=== PATIENT | male | born 1940 | race Caucasian/White ===

== ENCOUNTER 2017-09-21 15:01 | Inpatient (IN) | payer OTHER ==
[~2017-09-21] VITALS: Ht 182.9 cm; Wt 98.5 kg
[2017-09-21 16:05] LABS: Basophils # (auto) 0 uL; Eosinophils # (auto) 0 uL; Lymphocytes # (auto) 0.6 uL; Neutrophils # (auto) 6.1 uL; Nucleated Red Blood Cells % 0.1 %
[2017-09-21 16:07] LABS: Basophils % (auto) 0.5 % (0.0-2.0); Eosinophils % (auto) 0.1 % (0.0-7.0); Hematocrit 40.3 % (41.0-53.0); Lymphocytes % (auto) 7.9 % (10.0-50.0); Mean Corpuscular Hemoglobin 35.4 pg (28.0-32.0); Mean Corpuscular Hgb Conc. 34.7 g/dL (32.0-36.0); Mean Corpuscular Volume 102.2 fL (80.0-100.0); Monocytes # (auto) 0.9 uL; Monocytes % (auto) 11.2 % (0.0-12.0); Neutrophils % (auto) 80.3 % (37.0-80.0); Platelet Count (auto) 168 10^3/uL (140-450); Red Blood Cells 3.94 10^6/uL (4.5-5.90); Red Cell Distribution Width 14.5 % (11.8-14.3); White Blood Cell 7.6 10^3/uL (4.4-10.8)
[2017-09-21 16:11] LABS: Prothrombin Time 10.7 sec (9.27-12.13)
[2017-09-21 16:20] LABS: Albumin 2.8 g/dL (3.4-5.0); BUN/Creatinine Ratio 17.6; Bilirubin, Total 0.5 mg/dL (0.2-1.0); Calcium 8.2 mg/dL (8.5-10.1); Magnesium 2.7 mg/dL (1.6-2.6); Potassium 4.2 mmol/L (3.5-5.1); Total Protein 6.6 g/dL (6.4-8.2)
[2017-09-21] MEDS ORDERED: cloNIDine HCL 0.1 MG TAB ONE (18:17)
[2017-09-21] MEDS ORDERED: HYDROcodone-ACET 5/325MG TAB PO PRN (19:00)
[2017-09-21] MEDS ORDERED: ACETAMINOPHEN 500 MG TAB PO PRN (19:00)
[2017-09-21] MEDS ORDERED: MORPHINE SULF INJ 2 MG/ML SYRINGE 1ML IV PRN ×2 (19:00)
[2017-09-21] MEDS ORDERED: LORazepam 0.5 MG TAB PO PRN (19:00)
[2017-09-21] MEDS ORDERED: NITROGLYCERIN 0.4 MG SL TAB SL PRN (19:00)
[2017-09-21] MEDS ORDERED: LACTULOSE 20Gm/30ML SOLN PO PRN (19:00)
[2017-09-21] MEDS ORDERED: TEMAZEPAM 15 MG CAP PO PRN (19:00)
[2017-09-21] MEDS: ENOXAPARIN SOD 40 MG/0.4 ML SYRINGE SC SCH (19:15)
[2017-09-21] MEDS ORDERED: ENALAPRILAT 1.25 MG/ML-1ML VIAL IV ONE ×2 (19:30→20:30)
[2017-09-21] MEDS ORDERED: FUROSEMIDE 40 MG/4 ML VIAL IV ONE (19:30)
[2017-09-21] MEDS ORDERED: chlordiazePOXIDE HCL 25 MG CAP PO PRN (20:00)
[2017-09-21] MEDS ORDERED: THIAMINE 100mg/ml INJ (200mg/2ml VIAL) IV ONE (20:00)
[2017-09-21] MEDS ORDERED: CARVEDILOL 3.125 MG TAB PO ONE (20:30)
[2017-09-21] MEDS ORDERED: NITROGLYCERIN 0.2MG/HR TOPICAL PATCH TD ONE (20:30)
[2017-09-21] MEDS ORDERED: chlordiazePOXIDE HCL 5 MG CAP PO ONE (20:30)
[2017-09-21 22:15] VITALS: BP 153/96
[2017-09-21 22:25] VITALS: BP 153/96
[2017-09-21] MEDS: SODIUM CHLOR 0.9% PF (SALINE LOCK) 10ML VIAL/SYR IV SCH (23:01)
[2017-09-21] MEDS: CARVEDILOL 3.125 MG TAB PO SCH (23:02)
[2017-09-21] MEDS: ATORVASTATIN 20 MG TAB PO SCH (23:02)
[2017-09-21] MEDS ORDERED: TRAZ50TA2 PO (23:14)
[2017-09-22 01:45] LABS: Urine Bacteria FEW /hpf (None Seen); Urine Blood 2+ /uL (Negative); Urine Hyaline Cast FEW /lpf (0 - 2); Urine Specific Gravity 1.013 (1.001-1.035); Urine WBC 3 /hpf (0 - 3)
[2017-09-22 01:46] LABS: Alcohol, Urine < 3.0 mg/dL (0-5); Amphetamine Screen, Urine NEGATIVE (NEGATIVE); Barbiturate Scree,Urine NEGATIVE (NEGATIVE); Benzodiazephine Screen, Urine NEGATIVE (NEGATIVE); Cannabinoid Screen, Urine NEGATIVE (NEGATIVE); Cocaine Screen, Urine NEGATIVE (NEGATIVE); Opiate Scree,Urine NEGATIVE (NEGATIVE); Phencyclidine Screen, Urine NEGATIVE (NEGATIVE)
[2017-09-22 05:00] VITALS: BP 135/56
[2017-09-22] MEDS: SODIUM CHLOR 0.9% PF (SALINE LOCK) 10ML VIAL/SYR IV SCH ×3 (06:10→21:24)
[2017-09-22] MEDS: chlordiazePOXIDE HCL 5 MG CAP PO SCH ×3 (06:10→12:00)
[2017-09-22 06:22] LABS: Albumin 2.5 g/dL (3.4-5.0); BUN/Creatinine Ratio 18.7; Bilirubin, Total 0.4 mg/dL (0.2-1.0); Calcium 7.6 mg/dL (8.5-10.1); Potassium 3.4 mmol/L (3.5-5.1); Total Protein 5.8 g/dL (6.4-8.2)
[2017-09-22 07:55] VITALS: BP 118/73
[2017-09-22] MEDS ORDERED: ENALAPRIL MALEATE 2.5 MG TAB PO SCH (10:00)
[2017-09-22] MEDS: NITROGLYCERIN 0.2MG/HR TOPICAL PATCH TD SCH (10:55)
[2017-09-22] MEDS: FUROSEMIDE 40 MG/4 ML VIAL IV SCH (10:56)
[2017-09-22] MEDS: ENOXAPARIN SOD 40 MG/0.4 ML SYRINGE SC SCH (10:57)
[2017-09-22] MEDS: THIAMINE 100mg/ml INJ (200mg/2ml VIAL) IV SCH (10:57)
[2017-09-22] MEDS: ASPirin 81 mg TAB PO SCH (10:58)
[2017-09-22] MEDS: POTASSIUM CHL 20 Meq TABLET PO SCH (10:58)
[2017-09-22] MEDS: CARVEDILOL 3.125 MG TAB PO SCH ×2 (10:59→21:25)
[2017-09-22] MEDS: PANTOPRAZOLE 40 MG TAB PO SCH (10:59)
[2017-09-22 13:00] VITALS: BP 142/100
[2017-09-22] MEDS: FOLIC ACID 1 MG TAB PO SCH (15:20)
[2017-09-22 16:16] VITALS: BP 159/98
[2017-09-22] MEDS: ATORVASTATIN 20 MG TAB PO SCH (21:25)
[2017-09-22] MEDS: PROMETHAZINE HCL 25 MG/ML 1ML IV PRN (21:26)
[2017-09-22 22:00] VITALS: BP 159/121
[2017-09-22 23:30] VITALS: BP 155/95
[2017-09-23 05:30] VITALS: BP 158/98
[2017-09-23] MEDS: SODIUM CHLOR 0.9% PF (SALINE LOCK) 10ML VIAL/SYR IV SCH ×3 (05:45→21:45)
[2017-09-23 05:46] LABS: Basophils # (auto) 0 uL; Basophils % (auto) 0.5 % (0.0-2.0); Hematocrit 35.5 % (41.0-53.0); Hemoglobin 12.3 g/dL (13.5-17.5); Mean Corpuscular Hemoglobin 35.5 pg (28.0-32.0); Platelet Count (auto) 131 10^3/uL (140-450)
[2017-09-23 05:48] LABS: Eosinophils # (auto) 0.1 uL; Eosinophils % (auto) 1.1 % (0.0-7.0); Lymphocytes % (auto) 17.3 % (10.0-50.0); Mean Corpuscular Hgb Conc. 34.7 g/dL (32.0-36.0); Mean Corpuscular Volume 102.4 fL (80.0-100.0); Monocytes % (auto) 16.7 % (0.0-12.0); Neutrophils # (auto) 3.7 uL; Neutrophils % (auto) 64.4 % (37.0-80.0); Nucleated Red Blood Cells % 0.1 %; Red Blood Cells 3.47 10^6/uL (4.5-5.90); Red Cell Distribution Width 13.9 % (11.8-14.3); White Blood Cell 5.7 10^3/uL (4.4-10.8)
[2017-09-23 06:02] LABS: BUN/Creatinine Ratio 18.1; Potassium 3.2 mmol/L (3.5-5.1)
[2017-09-23 06:06] LABS: Calcium 7.5 mg/dL (8.5-10.1); Magnesium 2.2 mg/dL (1.6-2.6)
[2017-09-23 08:46] VITALS: BP 169/107
[2017-09-23] MEDS: FOLIC ACID 1 MG TAB PO SCH (08:56)
[2017-09-23] MEDS: FUROSEMIDE 40 MG/4 ML VIAL IV SCH (08:56)
[2017-09-23] MEDS: POTASSIUM CHL 20 Meq TABLET PO SCH (08:56)
[2017-09-23] MEDS: CARVEDILOL 3.125 MG TAB PO SCH ×2 (08:57→21:45)
[2017-09-23] MEDS: PANTOPRAZOLE 40 MG TAB PO SCH (08:57)
[2017-09-23] MEDS: ASPirin 81 mg TAB PO SCH (08:58)
[2017-09-23] MEDS: THIAMINE 100mg/ml INJ (200mg/2ml VIAL) IV SCH (08:58)
[2017-09-23] MEDS: ENOXAPARIN SOD 40 MG/0.4 ML SYRINGE SC SCH (08:58)
[2017-09-23] MEDS: NITROGLYCERIN 0.2MG/HR TOPICAL PATCH TD SCH (10:00)
[2017-09-23 12:43] VITALS: BP 109/68
[2017-09-23] MEDS: PROMETHAZINE HCL 25 MG/ML 1ML IV PRN (15:49)
[2017-09-23] MEDS ORDERED: ALPRAZolam 0.25 MG TAB PO PRN (16:45)
[2017-09-23] MEDS ORDERED: hydrALAZINE HCL 10 MG TAB PO PRN (16:45)
[2017-09-23 17:04] VITALS: BP 161/98
[2017-09-23] MEDS: ATORVASTATIN 20 MG TAB PO SCH (21:44)
[2017-09-23 23:00] VITALS: BP 155/98
[2017-09-24 05:00] VITALS: BP 134/87
[2017-09-24] MEDS: SODIUM CHLOR 0.9% PF (SALINE LOCK) 10ML VIAL/SYR IV SCH ×2 (05:45→14:00)
[2017-09-24 06:25] LABS: Basophils # (auto) 0 uL; Eosinophils # (auto) 0.1 uL; Hemoglobin 12.3 g/dL (13.5-17.5); Lymphocytes # (auto) 0.7 uL; Neutrophils # (auto) 3.5 uL; Platelet Count (auto) 140 10^3/uL (140-450)
[2017-09-24 06:27] LABS: Basophils % (auto) 0.4 % (0.0-2.0); Eosinophils % (auto) 1.2 % (0.0-7.0); Hematocrit 36.3 % (41.0-53.0); Lymphocytes % (auto) 13.2 % (10.0-50.0); Mean Corpuscular Hemoglobin 34.9 pg (28.0-32.0); Mean Corpuscular Hgb Conc. 33.9 g/dL (32.0-36.0); Monocytes # (auto) 0.8 uL; Monocytes % (auto) 15.9 % (0.0-12.0); Neutrophils % (auto) 69.3 % (37.0-80.0); Red Blood Cells 3.53 10^6/uL (4.5-5.90); Red Cell Distribution Width 14.1 % (11.8-14.3); White Blood Cell 5.1 10^3/uL (4.4-10.8)
[2017-09-24 06:37] LABS: BUN/Creatinine Ratio 19.3; Calcium 7.5 mg/dL (8.5-10.1); Magnesium 2.5 mg/dL (1.6-2.6); Potassium 3.4 mmol/L (3.5-5.1)
[2017-09-24 08:00] VITALS: BP 143/79
[2017-09-24] MEDS: FUROSEMIDE 40 MG/4 ML VIAL IV SCH (10:00)
[2017-09-24] MEDS: THIAMINE 100mg/ml INJ (200mg/2ml VIAL) IV SCH (10:00)
[2017-09-24] MEDS: POTASSIUM CHL 20 Meq TABLET PO SCH (10:00)
[2017-09-24] MEDS: ASPirin 81 mg TAB PO SCH (10:00)
[2017-09-24] MEDS: FOLIC ACID 1 MG TAB PO SCH (10:00)
[2017-09-24] MEDS: CARVEDILOL 3.125 MG TAB PO SCH (10:00)
[2017-09-24] MEDS: PANTOPRAZOLE 40 MG TAB PO SCH (10:00)
[2017-09-24] MEDS: ENOXAPARIN SOD 40 MG/0.4 ML SYRINGE SC SCH (10:00)
[2017-09-24] MEDS: NITROGLYCERIN 0.2MG/HR TOPICAL PATCH TD SCH (10:00)
[2017-09-24 11:37] VITALS: BP 143/79
[2017-09-24 12:30] VITALS: BP 142/92
[2017-09-24 16:39] VITALS: BP 168/104
== END 2017-09-24 16:50 | disposition home health service (06) | DRG 280 ==
LOC: ER 15:01 → EDUNIT# 15:01 → EDBD 15:01 → TELE 15:02 → TELE-EAST 22:16
PROVIDERS: ADMIT Internal Medicine; ATTEND Internal Medicine
DX: I13.0 Hypertensive heart and chronic kidney disease with heart failure and stage 1 through stage 4 chronic kidney disease, or unspecified chronic kidney disease (principal); I21.4 Non-ST elevation (NSTEMI) myocardial infarction; I50.43 Acute on chronic combined systolic (congestive) and diastolic (congestive) heart failure; N17.9 Acute kidney failure, unspecified; I42.0 Dilated cardiomyopathy; N18.3 Chronic kidney disease, stage 3 (moderate); I25.5 Ischemic cardiomyopathy; F10.20 Alcohol dependence, uncomplicated; N28.1 Cyst of kidney, acquired; Z72.0 Tobacco use; Z82.49 Family history of ischemic heart disease and other diseases of the circulatory system; Z91.19 Patient's noncompliance with other medical treatment and regimen
CPT/HCPCS: 36415; 51702; 71045; 74176; 76775; 80048; 80053; 80061; 80307; 81001; 82150; 82550; 83690; 83735; 83880; 84443; 84484; 85025; 85379; 85610; 85652; 85730; 86141; 93005; 93306; 94761; 96372; 96374; 96375

== ENCOUNTER 2017-11-02 20:26 | Inpatient (IN) | payer OTHER ==
[~2017-11-02] VITALS: Ht 182.9 cm; Wt 99.3 kg
[~2017-11-02 20:26] MED LIST: TRAZ50TA2 PO
[2017-11-02] MEDS ORDERED: FUROSEMIDE 40 MG/4 ML VIAL IV ONE (20:45)
[2017-11-02 21:15] LABS: Basophils # (auto) 0 uL; Eosinophils # (auto) 0 uL; Lymphocytes # (auto) 0.6 uL; Lymphocytes % (auto) 9.7 % (10.0-50.0); Mean Corpuscular Volume 103.1 fL (80.0-100.0); Monocytes # (auto) 0.5 uL; White Blood Cell 6.5 10^3/uL (4.4-10.8)
[2017-11-02 21:17] LABS: Basophils % (auto) 0.4 % (0.0-2.0); Eosinophils % (auto) 0.7 % (0.0-7.0); Hematocrit 29.1 % (41.0-53.0); Hemoglobin 9.9 g/dL (13.5-17.5); Mean Corpuscular Hemoglobin 35.3 pg (28.0-32.0); Mean Corpuscular Hgb Conc. 34.2 g/dL (32.0-36.0); Monocytes % (auto) 7.6 % (0.0-12.0); Neutrophils # (auto) 5.3 uL; Neutrophils % (auto) 81.6 % (37.0-80.0); Platelet Count (auto) 173 10^3/uL (140-450); Red Blood Cells 2.82 10^6/uL (4.5-5.90)
[2017-11-02 21:32] LABS: INR 0.97 (0.9-1.15); Partial Thromboplastin Time 29.5 sec (23.78-33.04); Prothrombin Time 10.4 sec (9.27-12.13)
[2017-11-02 21:45] LABS: Albumin 2.4 g/dL (3.4-5.0); BUN/Creatinine Ratio 11.6; Bilirubin, Total 0.3 mg/dL (0.2-1.0); Calcium 7.5 mg/dL (8.5-10.1); Potassium 3.7 mmol/L (3.5-5.1); Total Protein 6.3 g/dL (6.4-8.2)
[2017-11-02] MEDS ORDERED: ASPirin 325 MG TAB PO ONE (22:45)
[2017-11-02] MEDS ORDERED: LABETALOL HCL 5 MG/ML ML 20ML VIAL IV ONE (22:45)
[2017-11-02] MEDS ORDERED: MORPHINE SULFATE 4 MG/ML SYR/VIAL IV ONE (22:45)
[2017-11-02] MEDS ORDERED: NITROGLYCERIN 0.4 MG SL TAB SL ONE (22:45)
[2017-11-02] MEDS ORDERED: MORPHINE SULFATE 4 MG/ML SYR/VIAL IV PRN (23:30)
[2017-11-02] MEDS ORDERED: ONDANSETRON HCL 4 MG/2 ML VIAL IV PRN (23:30)
[2017-11-02] MEDS ORDERED: HYDROcodone-ACET 5/325MG TAB PO PRN (23:30)
[2017-11-02] MEDS ORDERED: ACETAMINOPHEN 325 MG TAB PO PRN (23:30)
[2017-11-02] MEDS ORDERED: NITROGLYCERIN 0.4 MG SL TAB SL PRN (23:30)
[2017-11-02] MEDS ORDERED: TEMAZEPAM 15 MG CAP PO PRN (23:30)
[2017-11-02] MEDS ORDERED: DOCUSATE SOD 100 MG CAP PO PRN (23:30)
[2017-11-03] VITALS (7 sets, daily range): BP systolic 98–161; BP diastolic 56–98
[2017-11-03] MEDS ORDERED: cloNIDine HCL 0.1 MG TAB PO ONE (00:30)
[2017-11-03 01:45] LABS: Urine Amorphous Crystal FEW /hpf (None Seen); Urine Bacteria FEW /hpf (None Seen); Urine Blood Negative /uL (Negative); Urine Mucus FEW (None Seen); Urine Specific Gravity 1.006 (1.001-1.035); Urine WBC 4 /hpf (0 - 3)
[2017-11-03] MEDS ORDERED: FUROSEMIDE 20 MG/2 ML VIAL IV SCH (06:00)
[2017-11-03] MEDS: PANTOPRAZOLE 40 MG TAB PO SCH (06:19)
[2017-11-03 06:52] LABS: Basophils # (auto) 0 uL; Eosinophils # (auto) 0.1 uL; Hemoglobin 9.1 g/dL (13.5-17.5); Lymphocytes # (auto) 0.8 uL; Monocytes # (auto) 0.5 uL; Neutrophils # (auto) 3.1 uL; Neutrophils % (auto) 67.8 % (37.0-80.0); Red Cell Distribution Width 14.5 % (11.8-14.3); White Blood Cell 4.6 10^3/uL (4.4-10.8)
[2017-11-03 06:54] LABS: Basophils % (auto) 0.5 % (0.0-2.0); Eosinophils % (auto) 1.7 % (0.0-7.0); Hematocrit 26.8 % (41.0-53.0); Lymphocytes % (auto) 18.6 % (10.0-50.0); Mean Corpuscular Hemoglobin 34.9 pg (28.0-32.0); Mean Corpuscular Hgb Conc. 33.8 g/dL (32.0-36.0); Mean Corpuscular Volume 103.2 fL (80.0-100.0); Monocytes % (auto) 11.4 % (0.0-12.0); Nucleated Red Blood Cells % 0.1 %; Platelet Count (auto) 155 10^3/uL (140-450); Red Blood Cells 2.59 10^6/uL (4.5-5.90)
[2017-11-03 07:20] LABS: Albumin 2.3 g/dL (3.4-5.0); BUN/Creatinine Ratio 11.5; Bilirubin, Total 0.3 mg/dL (0.2-1.0); Calcium 7.3 mg/dL (8.5-10.1); Potassium 3.9 mmol/L (3.5-5.1); Total Protein 5.8 g/dL (6.4-8.2)
[2017-11-03] MEDS: CARVEDILOL 3.125 MG TAB PO SCH ×2 (08:00→18:00)
[2017-11-03] MEDS: ENOXAPARIN SOD 40 MG/0.4 ML SYRINGE SC SCH (08:45)
[2017-11-03] MEDS: ASPirin 81 mg TAB PO SCH (08:45)
[2017-11-03] MEDS ORDERED: FUROSEMIDE 40 MG/4 ML VIAL IV ONE (15:00)
[2017-11-03] MEDS: FUROSEMIDE 20 MG/2 ML VIAL IV SCH (18:00)
[2017-11-03] MEDS: IPRATROPIUM BROM 0.5 MG/2.5ML INH SOL NEB SCH (18:38)
[2017-11-03] MEDS: ALBUTEROL SULF 2.5 MG/0.5ML(0.5%) NEB SOLN NEB SCH (18:39)
[2017-11-03] MEDS ORDERED: hydrALAZINE HCL 20 MG/ML VL IV PRN (21:30)
[2017-11-03] MEDS ORDERED: ATORVASTATIN 20 MG TAB PO SCH (22:00)
[2017-11-03] MEDS ORDERED: traZODone HCL 50 MG TAB PO SCH (22:00)
[2017-11-04] VITALS: BP 151/86
[2017-11-04] MEDS: ALBUTEROL SULF 2.5 MG/0.5ML(0.5%) NEB SOLN NEB SCH ×4 (00:28→11:44)
[2017-11-04] MEDS: IPRATROPIUM BROM 0.5 MG/2.5ML INH SOL NEB SCH ×4 (00:28→11:44)
[2017-11-04 05:14] LABS: Basophils # (auto) 0 uL; Eosinophils # (auto) 0.1 uL; Lymphocytes # (auto) 0.7 uL; Mean Corpuscular Hemoglobin 34.8 pg (28.0-32.0); Monocytes # (auto) 0.6 uL; Neutrophils # (auto) 3.5 uL
[2017-11-04 05:16] LABS: Basophils % (auto) 0.5 % (0.0-2.0); Eosinophils % (auto) 2.3 % (0.0-7.0); Hematocrit 28.6 % (41.0-53.0); Hemoglobin 9.7 g/dL (13.5-17.5); Lymphocytes % (auto) 14.5 % (10.0-50.0); Mean Corpuscular Volume 102.5 fL (80.0-100.0); Monocytes % (auto) 11.3 % (0.0-12.0); Neutrophils % (auto) 71.4 % (37.0-80.0); Platelet Count (auto) 165 10^3/uL (140-450); Red Blood Cells 2.79 10^6/uL (4.5-5.90); Red Cell Distribution Width 14.4 % (11.8-14.3)
[2017-11-04 05:23] LABS: INR 0.96 (0.9-1.15); Partial Thromboplastin Time 29.2 sec (23.78-33.04); Prothrombin Time 10.3 sec (9.27-12.13)
[2017-11-04 05:27] VITALS: BP 146/88
[2017-11-04 05:41] LABS: BUN/Creatinine Ratio 12.3; Magnesium 2.1 mg/dL (1.6-2.6); Potassium 3.3 mmol/L (3.5-5.1)
[2017-11-04] MEDS: PANTOPRAZOLE 40 MG TAB PO SCH (06:20)
[2017-11-04] MEDS: FUROSEMIDE 20 MG/2 ML VIAL IV SCH (06:21)
[2017-11-04 09:00] VITALS: BP 136/75
[2017-11-04] MEDS: ENOXAPARIN SOD 40 MG/0.4 ML SYRINGE SC SCH (09:14)
[2017-11-04] MEDS: ASPirin 81 mg TAB PO SCH (09:15)
[2017-11-04] MEDS: CARVEDILOL 3.125 MG TAB PO SCH (09:15)
[2017-11-04 13:00] VITALS: BP 147/90
[2017-11-04] MEDS ORDERED: POTASSIUM CHL 20 Meq TABLET PO ONE (13:30)
[2017-11-04] MEDS ORDERED: TRAZ50TA2 PO (13:33)
[2017-11-04 15:27] VITALS: BP 147/90
== END 2017-11-04 16:20 | disposition home health service (06) | DRG 291 ==
LOC: ER 20:26 → EDBD 20:26 → TELE 20:27 → TELE-WESTW 23:58
PROVIDERS: ADMIT Nurse Practitioner; ATTEND Internal Medicine
DX: I13.0 Hypertensive heart and chronic kidney disease with heart failure and stage 1 through stage 4 chronic kidney disease, or unspecified chronic kidney disease (principal); J96.01 Acute respiratory failure with hypoxia; I50.43 Acute on chronic combined systolic (congestive) and diastolic (congestive) heart failure; N17.9 Acute kidney failure, unspecified; I16.1 Hypertensive emergency; E78.5 Hyperlipidemia, unspecified; I50.82 Biventricular heart failure; F10.10 Alcohol abuse, uncomplicated; F51.04 Psychophysiologic insomnia; I08.3 Combined rheumatic disorders of mitral, aortic and tricuspid valves; I42.9 Cardiomyopathy, unspecified; N18.3 Chronic kidney disease, stage 3 (moderate); Z82.49 Family history of ischemic heart disease and other diseases of the circulatory system; Z91.14 Patient's other noncompliance with medication regimen; Z91.19 Patient's noncompliance with other medical treatment and regimen; Z79.899 Other long term (current) drug therapy
CPT/HCPCS: 36415; 71045; 80048; 80053; 81001; 83735; 83880; 84443; 84484; 85025; 85610; 85730; 93005; 94640; 96374; 96375

== ENCOUNTER 2017-12-10 23:48 | Inpatient (IN) | payer OTHER ==
[~2017-12-10] VITALS: Ht 157.5 cm; Wt 100.2 kg
[2017-12-11] MEDS ORDERED: IPRATROPIUM BROM 0.5 MG/2.5ML INH SOL NEB ONE
[2017-12-11] MEDS ORDERED: ALBUTEROL SULF 2.5 MG/0.5ML(0.5%) NEB SOLN NEB ONE
[2017-12-11 00:49] LABS: Basophils # (auto) 0 uL; Basophils % (auto) 0.4 % (0.0-2.0); Eosinophils # (auto) 0 uL; Eosinophils % (auto) 0.2 % (0.0-7.0); Hematocrit 33.3 % (41.0-53.0); Lymphocytes # (auto) 0.6 uL; Lymphocytes % (auto) 6.3 % (10.0-50.0); Mean Corpuscular Hemoglobin 33.1 pg (28.0-32.0); Mean Corpuscular Hgb Conc. 33.1 g/dL (32.0-36.0); Mean Corpuscular Volume 99.9 fL (80.0-100.0); Monocytes % (auto) 11.2 % (0.0-12.0); Neutrophils # (auto) 7.5 uL; Neutrophils % (auto) 81.9 % (37.0-80.0); Nucleated Red Blood Cells % 0.1 %; Platelet Count (auto) 199 10^3/uL (140-450); Red Blood Cells 3.33 10^6/uL (4.5-5.90); Red Cell Distribution Width 14.2 % (11.8-14.3); White Blood Cell 9.2 10^3/uL (4.4-10.8)
[2017-12-11 01:03] LABS: INR 0.96 (0.9-1.15); Partial Thromboplastin Time 28.1 sec (23.78-33.04); Prothrombin Time 10.3 sec (9.27-12.13)
[2017-12-11 01:08] LABS: Albumin 2.9 g/dL (3.4-5.0); Calcium 7.6 mg/dL (8.5-10.1); Magnesium 2.1 mg/dL (1.6-2.6); Potassium 3.7 mmol/L (3.5-5.1)
[2017-12-11 01:10] LABS: BUN/Creatinine Ratio 8.9
[2017-12-11 01:15] LABS: Bilirubin, Total 0.4 mg/dL (0.2-1.0); Total Protein 6.9 g/dL (6.4-8.2)
[2017-12-11] MEDS ORDERED: FUROSEMIDE 40 MG/4 ML VIAL IV ONE (03:15)
[2017-12-11] MEDS ORDERED: ASPirin-EC 325mg tab PO ONE (03:15)
[2017-12-11] MEDS ORDERED: methylPREDNISolone SOD SUCC 125 MG/2 ML VL IV ONE (03:15)
[2017-12-11] MEDS ORDERED: cefTRIAXone 1GM/50ML D5W 50 ML IV ONE (03:15)
[2017-12-11] MEDS ORDERED: ONDANSETRON HCL 4 MG/2 ML VIAL IV ONE (05:30)
[2017-12-11] MEDS ORDERED: ACETAMINOPHEN 500 MG TAB PO PRN (05:30)
[2017-12-11] MEDS ORDERED: HYDROcodone-ACET 5/325MG TAB PO PRN (05:30)
[2017-12-11] MEDS: methylPREDNISolone SOD SUCC 40 MG/ML VL IV SCH ×3 (06:21→22:11)
[2017-12-11] MEDS: IPRATROPIUM BROM 0.5 MG/2.5ML INH SOL NEB SCH ×5 (06:28→22:30)
[2017-12-11] MEDS: ALBUTEROL SULF 2.5 MG/0.5ML(0.5%) NEB SOLN NEB SCH ×5 (06:28→22:30)
[2017-12-11] MEDS: ASPirin-EC 81 mg tab PO SCH (07:27)
[2017-12-11 08:03] VITALS: BP 160/76
[2017-12-11] MEDS: FUROSEMIDE 40 MG/4 ML VIAL IV SCH (09:38)
[2017-12-11] MEDS: CARVEDILOL 3.125 MG TAB PO SCH ×2 (09:39→22:12)
[2017-12-11 12:47] VITALS: BP 136/74
[2017-12-11 14:20] VITALS: BP 136/74
[2017-12-11 17:00] VITALS: BP_SYST 128; BP_SYST 133; BP_DIAS 72; BP_DIAS 83
[2017-12-11] MEDS ORDERED: POLYETHYLENE GLYCOL 17 GM PWDR PO PRN (18:15)
[2017-12-11] MEDS: DOCUSATE SOD 100 MG CAP PO SCH ×2 (18:46→22:12)
[2017-12-11 20:00] VITALS: BP 154/86
[2017-12-11 22:00] VITALS: BP 147/69
[2017-12-11] MEDS ORDERED: traZODone HCL 50 MG TAB PO SCH (22:00)
[2017-12-11] MEDS ORDERED: ATORVASTATIN 20 MG TAB PO SCH (22:00)
[2017-12-12] MEDS: ALBUTEROL SULF 2.5 MG/0.5ML(0.5%) NEB SOLN NEB SCH ×4 (02:09→14:12)
[2017-12-12] MEDS: IPRATROPIUM BROM 0.5 MG/2.5ML INH SOL NEB SCH ×4 (02:09→14:12)
[2017-12-12 05:15] VITALS: BP 142/99
[2017-12-12 05:50] LABS: Urine Bacteria FEW /hpf (None Seen); Urine Blood 1+ /uL (Negative); Urine Mucus FEW (None Seen); Urine Specific Gravity 1.009 (1.001-1.035); Urine WBC 8 /hpf (0 - 3)
[2017-12-12] MEDS: DOCUSATE SOD 100 MG CAP PO SCH ×2 (05:54→13:51)
[2017-12-12 06:31] LABS: Hematocrit 29.9 % (41.0-53.0); Hemoglobin 10.1 g/dL (13.5-17.5); Mean Corpuscular Hemoglobin 33.4 pg (28.0-32.0); Mean Corpuscular Hgb Conc. 33.8 g/dL (32.0-36.0); Platelet Count (auto) 177 10^3/uL (140-450); Red Blood Cells 3.02 10^6/uL (4.5-5.90); Red Cell Distribution Width 14.3 % (11.8-14.3); White Blood Cell 9.5 10^3/uL (4.4-10.8)
[2017-12-12 06:32] LABS: Basophils % (manual) 0 (0.0-2.0); Blast Cells 0; Eosinophils % (manual) 0 (0-7); Metamyelocytes % 0; Myelocytes % 0; Promyelocytes % 0; Reactive Lymphocytes 0
[2017-12-12 06:43] LABS: Band Neutrophils % (manual) 2; Lymphocytes % (manual) 5 (10.0-50.0); Monocytes % (manual) 3 (0-12)
[2017-12-12 06:57] LABS: Potassium 4.1 mmol/L (3.5-5.1)
[2017-12-12 07:02] LABS: BUN/Creatinine Ratio 17.8; Calcium 7.8 mg/dL (8.5-10.1); Magnesium 2.4 mg/dL (1.6-2.6)
[2017-12-12 08:00] VITALS: BP 133/72
[2017-12-12] MEDS: ASPirin-EC 81 mg tab PO SCH (09:21)
[2017-12-12] MEDS: methylPREDNISolone SOD SUCC 40 MG/ML VL IV SCH (09:22)
[2017-12-12] MEDS: CARVEDILOL 3.125 MG TAB PO SCH (09:22)
[2017-12-12] MEDS: FUROSEMIDE 40 MG/4 ML VIAL IV SCH (09:23)
[2017-12-12 12:00] VITALS: BP 146/97
[2017-12-12] MEDS ORDERED: FURO40TA PO (12:33)
[2017-12-12] MEDS ORDERED: CAR3125T PO (12:33)
[2017-12-12] MEDS ORDERED: ASP81EC PO (12:33)
[2017-12-12] MEDS ORDERED: DOCU100C8 PO (12:33)
[2017-12-12] MEDS ORDERED: PRED-559 PO (12:33)
[2017-12-12 14:28] VITALS: BP 146/97
== END 2017-12-12 18:08 | disposition home health service (06) | DRG 291 ==
LOC: EDUNIT# 23:48 → EDBD 23:48 → ER 23:53 → TELE 23:54 → TELE-WESTW 12-11 11:33
PROVIDERS: ADMIT Nurse Practitioner Family; ATTEND Internal Medicine
DX: I13.0 Hypertensive heart and chronic kidney disease with heart failure and stage 1 through stage 4 chronic kidney disease, or unspecified chronic kidney disease (principal); I50.23 Acute on chronic systolic (congestive) heart failure; J96.01 Acute respiratory failure with hypoxia; J44.1 Chronic obstructive pulmonary disease with (acute) exacerbation; I25.5 Ischemic cardiomyopathy; E78.5 Hyperlipidemia, unspecified; J84.10 Pulmonary fibrosis, unspecified; K59.00 Constipation, unspecified; N18.3 Chronic kidney disease, stage 3 (moderate); Z82.49 Family history of ischemic heart disease and other diseases of the circulatory system; Z87.891 Personal history of nicotine dependence; Z91.14 Patient's other noncompliance with medication regimen
CPT/HCPCS: 36415; 71045; 80048; 80053; 81001; 83735; 83880; 84484; 85007; 85025; 85027; 85610; 85730; 93005; 94640; 94761; 96365; 96375; 99291; G0378; J0696; J2405

== ENCOUNTER 2018-04-01 07:24 | Inpatient (IN) | payer OTHER | END 2018-04-04 11:06 | disposition home or self-care (01) | LOC: ER 07:24 → TELE 13:22 → TELE-WESTW 21:59 | PROC: 0DBL8ZX Excision of Transverse Colon, Via Natural or Artificial Opening Endoscopic, Diagnostic (ICD-10-PCS; principal; 2018-04-03 09:08) | DX: I13.0 Hypertensive heart and chronic kidney disease with heart failure and stage 1 through stage 4 chronic kidney disease, or unspecified chronic kidney disease (principal); I21.A1 Myocardial infarction type 2; J96.01 Acute respiratory failure with hypoxia; E43 Unspecified severe protein-calorie malnutrition; I50.23 Acute on chronic systolic (congestive) heart failure; K57.30 Diverticulosis of large intestine without perforation or abscess without bleeding; I42.9 Cardiomyopathy, unspecified; N18.3 Chronic kidney disease, stage 3 (moderate); D63.1 Anemia in chronic kidney disease; E78.5 Hyperlipidemia, unspecified; K64.8 Other hemorrhoids ==

== ENCOUNTER 2018-04-09 05:13 | Inpatient (IN) | payer OTHER | END 2018-04-10 18:40 | disposition hospice, home (50) | LOC: ER 05:13 → TELE 07:56 → TELE-WESTW 12:01 | DX: N17.9 Acute kidney failure, unspecified (principal); I50.43 Acute on chronic combined systolic (congestive) and diastolic (congestive) heart failure; I13.0 Hypertensive heart and chronic kidney disease with heart failure and stage 1 through stage 4 chronic kidney disease, or unspecified chronic kidney disease ==

== ENCOUNTER 2018-04-24 15:53 | Inpatient (IN) | payer OTHER ==
[~2018-04-24] VITALS: Ht 182.9 cm; Wt 100.0 kg
[~2018-04-24 15:53] MED LIST changes: +ALBUAER3 IN; +APIX2.5T OR; +ATOR40TA52; +CARV6.2551 PO; +DOCU100C8 PO; +FURO40TA PO; +PANT40T PO
[2018-04-24 17:01] LABS: Hemoglobin 8.6 g/dL (13.5-17.5); Monocytes # (auto) 0.8 uL; White Blood Cell 10.4 10^3/uL (4.4-10.8)
[2018-04-24 17:02] LABS: Basophils # (auto) 0.1 uL; Basophils % (auto) 1.4 % (0.0-2.0); Eosinophils # (auto) 0 uL; Eosinophils % (auto) 0.3 % (0.0-7.0); Hematocrit 26.9 % (41.0-53.0); Lymphocytes # (auto) 0.7 uL; Lymphocytes % (auto) 6.6 % (10.0-50.0); Mean Corpuscular Hgb Conc. 32.2 g/dL (32.0-36.0); Mean Corpuscular Volume 83.9 fL (80.0-100.0); Monocytes % (auto) 7.8 % (0.0-12.0); Neutrophils # (auto) 8.7 uL; Neutrophils % (auto) 83.9 % (37.0-80.0); Nucleated Red Blood Cells % 0.2 %; Platelet Count (auto) 366 10^3/uL (140-450); Red Cell Distribution Width 18.1 % (11.8-14.3)
[2018-04-24 17:06] LABS: Albumin 2.5 g/dL (3.4-5.0); BUN/Creatinine Ratio 24.9; Calcium 7.9 mg/dL (8.5-10.1); Magnesium 2.6 mg/dL (1.6-2.6); Potassium 3.8 mmol/L (3.5-5.1)
[2018-04-24 17:11] LABS: Bilirubin, Total 0.4 mg/dL (0.2-1.0); Total Protein 7.2 g/dL (6.4-8.2)
[2018-04-24 17:22] LABS: INR 1.08 (0.9-1.15); Partial Thromboplastin Time 32.4 sec (23.78-33.04); Prothrombin Time 11.5 sec (9.27-12.13)
[2018-04-24 20:46] LABS: Urine Bacteria NONE SEEN /hpf (None Seen); Urine Blood Negative /uL (Negative); Urine WBC 1 /hpf (0 - 3)
[2018-04-24] MEDS ORDERED: cefTRIAXone 1GM/50ML D5W 50 ML IV ONE (21:00)
[2018-04-24] MEDS ORDERED: MORPHINE SULF INJ 2 MG/ML SYRINGE 1ML IV PRN (21:15)
[2018-04-24] MEDS ORDERED: FUROSEMIDE 40 MG/4 ML VIAL IV ONE (21:15)
[2018-04-24] MEDS ORDERED: HYDROcodone-ACET 5/325MG TAB PO PRN (21:15)
[2018-04-24] MEDS ORDERED: ONDANSETRON HCL 4 MG/2 ML VIAL IV PRN (21:15)
[2018-04-24] MEDS ORDERED: AZITHROMYCIN 500MG/ 250ML 250 ML IV ONE (21:15)
[2018-04-24] MEDS ORDERED: cloNIDine HCL 0.1 MG TAB PO PRN (21:15)
[2018-04-24] MEDS ORDERED: NITROGLYCERIN 0.4 MG SL TAB SL PRN (21:15)
[2018-04-24] MEDS ORDERED: ALBUTEROL SULF 2.5 MG/0.5ML(0.5%) NEB SOLN NEB PRN (21:15)
[2018-04-24] MEDS ORDERED: ACETAMINOPHEN 325 MG TAB PO PRN (21:15)
[2018-04-24] MEDS: APIXABAN 2.5 MG TAB PO SCH (22:55)
[2018-04-24] MEDS: ATORVASTATIN 20 MG TAB PO SCH (22:55)
[2018-04-24] MEDS: CARVEDILOL 3.125 MG TAB PO SCH (22:55)
[2018-04-25 02:34] VITALS: BP 120/65
[2018-04-25] MEDS: FUROSEMIDE 20 MG/2 ML VIAL IV SCH ×2 (06:24→18:02)
[2018-04-25 07:11] LABS: Basophils # (auto) 0 uL; Lymphocytes # (auto) 0.5 uL; Nucleated Red Blood Cells % 0.1 %; White Blood Cell 8.8 10^3/uL (4.4-10.8)
[2018-04-25 07:16] LABS: Eosinophils # (auto) 0 uL; Eosinophils % (auto) 0.3 % (0.0-7.0); Hematocrit 25.2 % (41.0-53.0); Lymphocytes % (auto) 5.2 % (10.0-50.0); Mean Corpuscular Hemoglobin 26.6 pg (28.0-32.0); Mean Corpuscular Hgb Conc. 31.8 g/dL (32.0-36.0); Mean Corpuscular Volume 83.8 fL (80.0-100.0); Monocytes % (auto) 11.9 % (0.0-12.0); Neutrophils # (auto) 7.2 uL; Neutrophils % (auto) 82.6 % (37.0-80.0); Platelet Count (auto) 330 10^3/uL (140-450); Red Blood Cells 3.01 10^6/uL (4.5-5.90); Red Cell Distribution Width 17.9 % (11.8-14.3)
[2018-04-25 07:28] LABS: Albumin 2.2 g/dL (3.4-5.0); Calcium 7.8 mg/dL (8.5-10.1); Potassium 3.5 mmol/L (3.5-5.1)
[2018-04-25 07:33] LABS: BUN/Creatinine Ratio 23.3; Bilirubin, Total 0.3 mg/dL (0.2-1.0); Total Protein 6.5 g/dL (6.4-8.2)
--- NOTE | 2018-04-25 07:45 | NUR ---
ASSESSMENT NOTE PT ARRIVED FROM ER BY HEENA, ALERT ORIENTED X4, PT WAS RESTING IN GURNEY IN LOW CABALLERO POSITION, LEFT LEG WAS RESTING ON A PILLOW, PT STAR SCREAMING WHEN HIS LEFT LOWER LEG GOT TOUCHED, ALSO I NOTICE HIS RIGHT ARM IS VERY WEEK AND TENDER TO TOUCH, LEFT ARM IS VERY WEEK, AND PT HAS NO PROBLEM, PT ASSISTED WITH MAX ASSIST TO GET INSIDE HIS BED, PT REPOSITIONED CAREFULLY IN LOW CABALLERO POSITION, OXYGEN 2 L NC, CALL LIGHT WITHIN RAECH.
[2018-04-25 08:30] VITALS: BP 119/73
--- NOTE | 2018-04-25 08:45 | NUR ---
BREAKFAST PT ASSISTED TO EAT BREAKFAST.
[2018-04-25] MEDS ORDERED: cefTRIAXone 1GM/50ML D5W 50 ML IV SCH (09:00)
[2018-04-25] MEDS: ASPirin 81 mg TAB PO SCH (09:40)
[2018-04-25] MEDS: APIXABAN 2.5 MG TAB PO SCH ×2 (09:42→21:56)
[2018-04-25] MEDS: PANTOPRAZOLE 40 MG TAB PO SCH (09:42)
[2018-04-25] MEDS: CARVEDILOL 3.125 MG TAB PO SCH ×2 (09:43→21:56)
[2018-04-25 09:49] VITALS: BP 119/73
[2018-04-25] MEDS ORDERED: AZITHROMYCIN 500MG/ 250ML 250 ML IV SCH (10:00)
--- NOTE | 2018-04-25 11:25 | NUR ---
DR MARLON Hermosillo CALLED TO FOLLOW UP ON PT WITH NEW ORDERS
[2018-04-25] MEDS: MORPHINE SULF INJ 2 MG/ML SYRINGE 1ML IV PRN ×2 (11:47→21:56)
[2018-04-25 12:27] VITALS: BP 118/75
--- NOTE | 2018-04-25 12:30 | NUR ---
LUNCH PT WAS ABLE TO FEED HIM SELF, PT IS MOVING HIS UPPER AND LOWER EXTREMITIES MORE COMPARING WHEN HE ARRIVED IN AM.
--- NOTE | 2018-04-25 15:45 | NUR ---
ASSESSED PATIENT FOR PRN MED NEB. PATIENT RA WITH A SPO2 OF 97%, HR 85, RR 18, BILATERAL COARSE BREATH SOUNDS. NO WHEEZES NOTED. PATIENT WAS INSTRUCTED TO COUGH. PATIENT DEMONSTRATED GOOD COUGHING EFFORT. PATIENT IN NO RESPIRATORY DISTRESS. NO SOB NOTED. WILL CONTINUE TO MONITOR PATIENT.
--- NOTE | 2018-04-25 16:02 | NUR ---
PAGED DR MARLON Hermosillo REGARDING GOUT LAB RESULTS
[2018-04-25 16:31] VITALS: BP 107/65
--- NOTE | 2018-04-25 17:52 | NUR ---
DR PEREZ IS HERE TO FOLLOW UP ON PT
[2018-04-25] MEDS ORDERED: methylPREDNISolone SOD SUCC 40 MG/ML VL IV ONE (18:30)
--- NOTE | 2018-04-25 19:10 | NUR ---
Opening Shift Note Assumed care of patient, awake and alert. No S/S of distress/SOB or pain. Instructed on POC and to call for assistance PRN, will continue to monitor for changes Q1hr and PRN.
[2018-04-25] MEDS ORDERED: COLCHICINE 0.6 MG CAP PO SCH (20:00)
[2018-04-25] MEDS: ATORVASTATIN 20 MG TAB PO SCH (21:55)
[2018-04-25] MEDS: TEMAZEPAM 15 MG CAP PO PRN (21:56)
[2018-04-25 22:00] VITALS: BP 146/96
[2018-04-26 05:00] VITALS: BP 150/86
[2018-04-26] MEDS ORDERED: FUROSEMIDE 20 MG TAB PO SCH (06:00)
[2018-04-26 06:29] LABS: Basophils # (auto) 0 uL; Eosinophils # (auto) 0 uL; Hemoglobin 7.4 g/dL (13.5-17.5); Lymphocytes # (auto) 0.3 uL; Neutrophils # (auto) 9.1 uL
[2018-04-26 06:32] LABS: Hematocrit 23.7 % (41.0-53.0); Lymphocytes % (auto) 3.2 % (10.0-50.0); Mean Corpuscular Hemoglobin 26.1 pg (28.0-32.0); Mean Corpuscular Hgb Conc. 31.2 g/dL (32.0-36.0); Mean Corpuscular Volume 83.6 fL (80.0-100.0); Monocytes # (auto) 0.3 uL; Monocytes % (auto) 3.2 % (0.0-12.0); Neutrophils % (auto) 93.6 % (37.0-80.0); Nucleated Red Blood Cells % 0.1 %; Platelet Count (auto) 306 10^3/uL (140-450); Red Blood Cells 2.84 10^6/uL (4.5-5.90); Red Cell Distribution Width 18.3 % (11.8-14.3); White Blood Cell 9.7 10^3/uL (4.4-10.8)
[2018-04-26 06:50] LABS: BUN/Creatinine Ratio 22.9; Calcium 7.9 mg/dL (8.5-10.1); Potassium 4.2 mmol/L (3.5-5.1)
[2018-04-26 08:00] VITALS: BP 151/93
--- NOTE | 2018-04-26 08:00 | NUR ---
ASSESSMENT NOTE PT IS ALERT ORIENTED X4, RESTING IN BED COMFORTABLY, NO DISTRESS NOTED, PT IS ABLE TO MOVE RT ARM MORE FREELY COMPARING YESTERDAY, RT HAND IS PUFFY, DENIES PAIN AT THIS TIME 0/10, CALL LIGHT WITHIN REACH.
[2018-04-26] MEDS ORDERED: LEVOFLOXACIN 500 MG TAB PO ONE (09:00)
[2018-04-26] MEDS: APIXABAN 2.5 MG TAB PO SCH ×2 (09:34→21:42)
[2018-04-26] MEDS: ASPirin 81 mg TAB PO SCH (09:34)
[2018-04-26] MEDS: CARVEDILOL 3.125 MG TAB PO SCH ×2 (09:35→21:41)
[2018-04-26] MEDS: PANTOPRAZOLE 40 MG TAB PO SCH (09:35)
--- NOTE | 2018-04-26 09:45 | NUR ---
PHYSICAL THERAPY AT BED SIDE ASSITING PT TO GET OUT OF BED TO CHAIR.
--- NOTE | 2018-04-26 10:21 | NUR ---
BM PT WAS ABLE TO AMBULATE WITH A MINIMUM ASSIST TO BATHROOM, EDUCATED HOW TO USE THE CALL LIGHT AFTER HE DONE, VERBALIS UNDERSTANDING.
--- NOTE | 2018-04-26 10:35 | NUR ---
PT HAS A LARGE SOFT BM WAS ABLE TO WASH HIS HAND GENTLY. ASSISTED TO AMBULATE BACK, AND SIT ON CHAIR AT BED SIDE.
--- NOTE | 2018-04-26 11:30 | NUR ---
DR PONCE IS HERE FOLLOWING UP ON PT.
[2018-04-26 12:00] VITALS: BP 105/41
--- NOTE | 2018-04-26 12:00 | NUR ---
FAMILY PT SON ERICKSON AND PT'S GRAND DAUGHTER AT BED SIDE.
--- NOTE | 2018-04-26 13:00 | NUR ---
FAMILY ERICKSON AND HIS DAUGHTER LEFT, INFORM ME TO CALL THEM FOR ANY UPDATE.
--- NOTE | 2018-04-26 13:10 | NUR ---
DR MASON INFORM ME THAT HE ALREADY CONTACTED DR PEREZ, AND HE WILL BE HERE, AND IF HE DID NOT CALL HIM BY 4 PM, TO GIVE HIM A CALL.
[2018-04-26] MEDS: FUROSEMIDE 20 MG TAB PO SCH ×2 (13:45→21:42)
--- NOTE | 2018-04-26 14:30 | NUR ---
PT IS SLEEPING, NO DISTRESS NOTED, CONTINUE MONITORING.
--- NOTE | 2018-04-26 15:10 | NUR ---
ASSESSED FOR PRN MED NEB, PT ON 2L NC WITH SPO2 96%, HR77, RR 16 BS CLEAR/DIMINISHED. PT IN NO DISTRESS NO SOB NOTED. WILL CONTINUE TO MONITOR PT.
[2018-04-26 16:00] VITALS: BP 112/66
--- NOTE | 2018-04-26 16:00 | NUR ---
CALLED DR PEREZ TO VERIFY THE COLCHICINE FREQUENCY, A BRIEF MESSAGE LEFT ON THE ANSWER MACHINE TO CALL US BACK.
--- NOTE | 2018-04-26 16:20 | NUR ---
DR PEREZ CALLED BACK, MADE AWARE THAT PT IS MUCH BETTER, DR PEREZ WILL COME LATER ON [facility] TO PUT NE WORDERS.
--- NOTE | 2018-04-26 16:50 | NUR ---
BM PT ASSISTED TO AMBULATE TO BATHROOM TO HAVE A BM.
--- NOTE | 2018-04-26 17:00 | NUR ---
PT ASSISTED BACK TO HIS ROOM, NO DISTRESS NOTED.
--- NOTE | 2018-04-26 17:01 | NUR ---
SITTING ON CHAIR AT BED SIDE
--- NOTE | 2018-04-26 19:07 | NUR ---
PRN MED NEB ASSESSMENT. NO DISTRESS NOTED AT THIS TIME. PT DENIES SOB. POX 96% ON 2L NC HR 88 RR 18. BS CLEAR AND DIMINISHED. TX NOT GIVEN.
[2018-04-26 21:19] VITALS: BP 120/75
[2018-04-26] MEDS: ATORVASTATIN 20 MG TAB PO SCH (21:40)
[2018-04-26] MEDS: TEMAZEPAM 15 MG CAP PO PRN (21:41)
[2018-04-26] MEDS: MORPHINE SULF INJ 2 MG/ML SYRINGE 1ML IV PRN (21:42)
--- NOTE | 2018-04-26 22:16 | NUR ---
Dr. Guadarrama at bedside Dr. Guadarrama is at bedside, states patient is ok to be discharged from Rheumatology perspective.
[2018-04-27 04:57] VITALS: BP 123/80
[2018-04-27] MEDS: FUROSEMIDE 20 MG TAB PO SCH ×3 (05:48→21:32)
--- NOTE | 2018-04-27 07:00 | NUR ---
Opening Shift Note Assumed care of patient, patient is resting with eyes closed. No S/S of distress/SOB or pain. Instructed on POC and to call for assist PRN, will continue to monitor. Bed locked in the lowest position. Bed rails up x2. Call light in reach.
[2018-04-27 07:04] LABS: Basophils # (auto) 0 uL; Eosinophils # (auto) 0.2 uL; Hematocrit 21.6 % (41.0-53.0)
[2018-04-27 07:07] LABS: Basophils % (auto) 0.1 % (0.0-2.0); Eosinophils % (auto) 2.7 % (0.0-7.0); Lymphocytes % (auto) 13.7 % (10.0-50.0); Mean Corpuscular Hemoglobin 26.6 pg (28.0-32.0); Mean Corpuscular Hgb Conc. 32.1 g/dL (32.0-36.0); Monocytes # (auto) 0.6 uL; Monocytes % (auto) 8.6 % (0.0-12.0); Neutrophils # (auto) 5.4 uL; Neutrophils % (auto) 74.9 % (37.0-80.0); Platelet Count (auto) 292 10^3/uL (140-450); Red Cell Distribution Width 18.1 % (11.8-14.3); White Blood Cell 7.2 10^3/uL (4.4-10.8)
[2018-04-27 07:42] LABS: Calcium 7.8 mg/dL (8.5-10.1)
[2018-04-27 07:44] LABS: BUN/Creatinine Ratio 28.5
[2018-04-27 07:55] LABS: Hemoglobin 6.9 g/dL (13.5-17.5)
--- NOTE | 2018-04-27 07:55 | NUR ---
CRITICAL LAB RECEIVED CALL FROM LUNA IN LAB WITH CRITICAL HGB OF 6.9. REBECCA WOOTEN. LEFT MESSAGE. AWAITING CALL BACK.
[2018-04-27 08:32] VITALS: BP 133/67
[2018-04-27] MEDS: APIXABAN 2.5 MG TAB PO SCH ×2 (10:00→21:32)
[2018-04-27] MEDS: ASPirin 81 mg TAB PO SCH (10:09)
[2018-04-27] MEDS: LEVOFLOXACIN 250 MG TAB PO SCH (10:09)
[2018-04-27] MEDS: CARVEDILOL 3.125 MG TAB PO SCH ×2 (10:11→21:32)
[2018-04-27] MEDS: PANTOPRAZOLE 40 MG TAB PO SCH (10:11)
--- NOTE | 2018-04-27 10:33 | NUR ---
Respiratory note: ASSESSED PATIENT FOR PRN BREATHING TX. PATIENT WAS AWAKE AND ALERT, NO RESPIRATORY DISTRESS NOTED OR STATED. PATIENT BREATH SOUNDS ARE CLEAR AND DIMINISHED, HR 85, SPO2 97% ON 2 L NASAL CANNULA, RR 18. PATIENT WAS INFORMED TO HAVE RT PAGED IF BREATHING TX IS NEEDED. WILL CONTINUE TO MONITOR AND NOTIFY RN.
--- NOTE | 2018-04-27 10:50 | NUR ---
REPAGED MD AWAITING CALL BACK.
--- NOTE | 2018-04-27 11:09 | NUR ---
AWARE DR. Pamela LAYNE AWARE OF HGB OF 6.9. NEW ORDERS RECEIVED. ORDERS READ BACK AND VERIFIED. Addendum: 04/27/18 at 1119 by Justine Casper RN AWARE THAT 1000 DOSE OF ELIQUIS WAS HELD. PER , OK TO HOLD 1000 DOSE TODAY.
[2018-04-27 11:49] VITALS: BP 134/70
--- NOTE | 2018-04-27 12:48 | NUR ---
RECIEVED CALL FROM MD PER DR. Bay LAYNE, CANCEL ORDER FOR BLOOD TRANSFUSION AND LASIX IV. PATIENT WILL BE DISCHARGED TO HOSPICE.
--- NOTE | 2018-04-27 13:40 | NUR ---
[facility] at bedside, providing education and information to patient. Obtained consent from patient, and [facility] packaging sales representative was provided with family information: Allen Smith , packaging sales representative verbalized that she will educate family on hospice and provide further information on their services.
[2018-04-27] MEDS ORDERED: FUROSEMIDE 20 MG/2 ML VIAL IV NR (16:00)
--- NOTE | 2018-04-27 16:45 | NUR ---
[facility] HOSPICE NURSE NIKITA AT THE BEDSIDE.
[2018-04-27 17:00] VITALS: BP 117/72
--- NOTE | 2018-04-27 18:00 | NUR ---
HOSPICE PER TESTER ARMATURE OR FIELDS NIKITA, PATIENT HAS BEEN ACCEPTED BY [facility] AND WILL BE SET UP TOMORROW FOR DISCHARGE. CALLED MD AND LEFT MESSAGE. AWAITING CALL BACK.
--- NOTE | 2018-04-27 18:54 | NUR ---
[facility] SPOKE WITH EVERT FROM [facility]. PER EVERT, TRANSPORT WILL BE SET UP TOMORROW.
--- NOTE | 2018-04-27 18:56 | NUR ---
CLOSING NOTE Patient is awake and alert. No S/S of distress/SOB or pain. Bed locked in the lowest position. Bed rails up x2. Call light in reach. Endorsed care to night nurse.
--- NOTE | 2018-04-27 19:30 | NUR ---
Opening Shift Note Assumed care of patient, awake and alert. No S/S of distress/SOB or pain. Bed locked in lowest position, side rails upx2, call light within reach. Instructed on POC and to call for assist PRN, will continue to monitor for changes Q1hr and PRN.
[2018-04-27 20:55] VITALS: BP 117/72
[2018-04-27] MEDS: ATORVASTATIN 20 MG TAB PO SCH (21:32)
--- NOTE | 2018-04-27 21:35 | NUR ---
Respiratory note: at bedside to assess for prn tx. tx not indicated at this time. bs are clear diminished. pt seems agitated asked how he felt. pt stated elizabeth raised upset voice "I will be better once everyone leaves me alone for tonight and lets me sleep" explained to pt i understand and will just be witting my name on the board and leaving. RT name written on pts room board.
[2018-04-27] MEDS: TEMAZEPAM 15 MG CAP PO PRN (21:42)
[2018-04-27 22:00] VITALS: BP 111/71
[2018-04-28 05:00] VITALS: BP 112/58
[2018-04-28] MEDS: FUROSEMIDE 20 MG TAB PO SCH (05:53)
[2018-04-28 07:34] VITALS: BP 132/83
--- NOTE | 2018-04-28 07:45 | NUR ---
OPEN PT SITTING ON EDGE OF BED, AWAKE A&O WITH NO C/O PAIN PT INDEPENDENTLY EATING FROM BREAKFAST LASHAWN CIFUENTES REMAINS IN PLACE PT STATES HES GOING HOME ON HOSPICE TODAY NO S/S OF DISTRESS OR DISCOMFORT WILL CONTINUE TO MONITOR
--- NOTE | 2018-04-28 08:48 | NUR ---
Respiratory note: ASSESSED PT FOR PRN TX PT WAS AWAKE AND ALERT SITTING AT THE EDGE OF BED. HR 76, RR 16, SPO2 100% ON ROOM AIR. BS ARE CLEAR NO INDICATION FOR TX AT THIS TIME. PT KNOWS TO HAVE RT PAGED IF TX IS NEEDED.
[2018-04-28] MEDS: PANTOPRAZOLE 40 MG TAB PO SCH (09:43)
[2018-04-28] MEDS: LEVOFLOXACIN 250 MG TAB PO SCH (09:43)
[2018-04-28] MEDS: ASPirin 81 mg TAB PO SCH (09:43)
[2018-04-28] MEDS: APIXABAN 2.5 MG TAB PO SCH (09:44)
[2018-04-28] MEDS: CARVEDILOL 3.125 MG TAB PO SCH (09:45)
--- NOTE | 2018-04-28 09:56 | NUR ---
IV AND TELE REMOVED IV TO RIGHT ARM REMOVED WITH CATHETER INTACT CIFUENTES REMOVED AFTER REMOVING 700ML CLEAR YELLOW URINE, PT GIVEN URINAL AND INSTRUCTED TO NOTIFY STAFF WHEN ABLE TO URINATE, VERBALIZED UNDERSTANDING. Addendum: 04/28/18 at 0958 by Dariela Vargas RN RN TELE RETURNED TO ANDREA/DANIEL
--- NOTE | 2018-04-28 11:23 | NUR ---
DISCHARGE PT PICKED UP BY TRANSPORTATION SET UP BY [facility]. PT AWAKE A&O AND VERBALIZED UNDERSTANDING OF TRANSPORTATION AND NEED TO MAKE FOLLOW UP DR CRUMP WHEN HOME. DR CONTACT INFORMATION GIVEN AND PT VERBALIZED UNDERSTANDING. PT SON ERICKSON CALLED AND MADE AWARE OD TRANSPORTATION HOME. ESCORTED OUT OF FACILITY BY WC WITH NO S/S OF DISTRESS
== END 2018-04-28 11:30 | disposition hospice, home (50) | DRG 698 ==
LOC: EDBD 15:53 → ER 15:59 → TELE 21:34 → TELE-EAST 04-25 08:04
PROVIDERS: ADMIT Nurse Practitioner; ATTEND Internal Medicine
DX: M10.372 Gout due to renal impairment, left ankle and foot (principal); I50.43 Acute on chronic combined systolic (congestive) and diastolic (congestive) heart failure; J18.9 Pneumonia, unspecified organism; I13.0 Hypertensive heart and chronic kidney disease with heart failure and stage 1 through stage 4 chronic kidney disease, or unspecified chronic kidney disease; N17.9 Acute kidney failure, unspecified; E78.5 Hyperlipidemia, unspecified; N18.3 Chronic kidney disease, stage 3 (moderate); D63.8 Anemia in other chronic diseases classified elsewhere; D64.9 Anemia, unspecified; I08.3 Combined rheumatic disorders of mitral, aortic and tricuspid valves; I48.91 Unspecified atrial fibrillation; I25.9 Chronic ischemic heart disease, unspecified; I70.0 Atherosclerosis of aorta; K21.9 Gastro-esophageal reflux disease without esophagitis; I25.2 Old myocardial infarction; Z82.49 Family history of ischemic heart disease and other diseases of the circulatory system; Z79.899 Other long term (current) drug therapy
CPT/HCPCS: 36415; 51702; 71045; 72040; 72100; 73110; 73130; 80048; 80053; 81001; 83605; 83735; 83880; 84443; 84484; 84550; 85025; 85610; 85730; 86850; 86900; 86901; 86920; 87040; 87081; 93005; 93970; 94640; 94761; 96365; 96367; 96375; 97163; G0378; J0696